=== PATIENT | male | born 2000 | race Caucasian/White ===

== ENCOUNTER 2021-09-16 11:02 | Emergency (ER) | payer OTHER, SELFPAY ==
--- NOTE | ~2021-09-16 | XR_ITS ---
EXAMINATION: XR elbow LT min 3V DATE: 09/16/2021 12:15 INDICATION: Left elbow pain TECHNIQUE: Anteroposterior, two oblique and lateral views of the left elbow were obtained. COMPARISON: None. FINDINGS: Alignment is normal. No fracture or joint effusion. Joint spaces are normal. Soft tissues a re unremarkable. IMPRESSION: 1. No acute osseous abnormality. Reviewed, dictated and finalized at location A. [facility]SEL[facility]
--- NOTE | ~2021-09-16 | XR_ITS ---
EXAMINATION: XR forearm LT 2V INDICATION: Left forearm pain TECHNIQUE: Two views of the left forearm are obtained. COMPARISON: None available FINDINGS: Bone alignment is normal. There is no fracture. There is ventral soft tissue swelling of th e mid/distal forearm without underlying osseous abnormality. No radiopaque foreign body is identified . IMPRESSION: 1. Soft tissue swelling of the forearm without underlying osseous abnormality. Reviewed, dictated and finalized at location A. [facility] RUNNER
[2021-09-16 11:28] VITALS: BP 141/76; PULSE 65; RESP 16; TEMP 36.6; O2SAT 100
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
== END 2021-09-16 12:45 | disposition home or self-care (01) ==
PROVIDERS: Emergency Provider Emergency Medicine; PCP Internal Medicine
DX: S50.12XA Contusion of left forearm, initial encounter (principal); V40.5XXA Car driver injured in collision with pedestrian or animal in traffic accident, initial encounter
CPT/HCPCS: 73080; 73090; 99284